=== PATIENT | male | born 1980 ===

== ENCOUNTER 2020-09-21 01:48 | Emergency (ER) | payer OTHER ==
[~2020-09-21] VITALS: Ht 160 cm; Wt 93.9 kg
[2020-09-21 01:48] VITALS: BP 113/73; TEMP 97.2
[~2020-09-21 01:48] MED LIST: ACET-206 PO; ASPIR-8181 MG PO; ASPIRIN325 M1 PO; ATEN25TA21 PO; BUSP15TAB2 PO; BUSPIRONE15 MG PO; CITA20TA2 PO; DIVA125C PO; DIVA250T PO; DIVALPROEX125 M1 PO; DIVALPROEX500 M1 PO; DIVALPROEX500 MG PO; DOK100 MG PO; KETOCONAZOLE21 EX; MEDR2.5T19 PO; MIRTAZAPINE7.5 MG PO; NICOTINE T14 MG/241 TD; OLANZAPINE5 MG PO; ONDA4TAB3 PO; PANTOPRAZOLE 40MG TA PO; POTA20TA4 PO; ROWEEPRA XR500 MG PO; SENNA8.6 MG PO; TRAMADOL HYDROC50 MG PO; TRAZODONE HYDR100 MG PO; TRIA37.541 PO; VITAMIN B-121000 MC2 PO; VITAMIN D35000 UNI1 PO; ZOLOFT25 MG PO
[2020-09-21 02:47] LABS: PLATELET COUNT 205 K/uL (142-355)
[2020-09-21 03:08] LABS: POTASSIUM 3.7 mmol/L (3.6-5.2)
[2020-09-21] MEDS ORDERED: CELEXA20 MG PO (05:01)
[2020-09-21] MEDS ORDERED: PROVERA5 MG PO (05:04)
[2020-09-21] MEDS ORDERED: TEMA15CA19 PO (05:06)
[2020-09-21] MEDS ORDERED: TRIA37.541 PO (05:10)
[2020-09-21] MEDS ORDERED: DIVA500T2 PO (05:13)
[2020-09-21] MEDS ORDERED: HALO5TAB10 PO (05:15)
[2020-09-21] MEDS ORDERED: HALO5INJ3 IM (05:19)
[2020-09-21] MEDS ORDERED: HYDR5TAB9 PO (05:21)
== END 2020-09-21 04:28 | disposition still patient (30) ==
LOC: ED 01:48
PROVIDERS: Emergency Medicine
DX: R46.89 Other symptoms and signs involving appearance and behavior (principal); I69.354 Hemiplegia and hemiparesis following cerebral infarction affecting left non-dominant side; F17.210 Nicotine dependence, cigarettes, uncomplicated; Z11.52 Encounter for screening for COVID-19; Z04.6 Encounter for general psychiatric examination, requested by authority
CPT/HCPCS: 36415; 80053; 81000; 85027; 87635; 93005; 99283; U0003

== ENCOUNTER 2020-10-15 14:41 | Emergency (ER) | payer OTHER ==
[~2020-10-15] VITALS: Ht 190.5 cm; Wt 93.9 kg
[2020-10-15 14:41] VITALS: BP 121/79; TEMP 97
[~2020-10-15 14:41] MED LIST changes: +BUSPIRONE10 MG PO; +CELEXA20 MG PO; +CELEXA40 MG PO; +DIVA500T2 PO; +HALO5INJ3 IM; +HALO5TAB10 PO; +HYDR5TAB9 PO; +NICODERM C14 MG/241 TD; +OLAN2.5T2 PO; +PROVERA5 MG PO; +TEMA15CA19 PO
[2020-10-15 15:19] LABS: PLATELET COUNT 177 K/uL (142-355)
[2020-10-15 15:25] LABS: POTASSIUM 3.6 mmol/L (3.6-5.2)
[2020-10-15] MEDS ORDERED: DIPHENHYDRAM50 MG/ML INJ (23:23)
[2020-10-15] MEDS ORDERED: BUSPIRONE HYDRO10 MG PO (23:24)
[2020-10-15] MEDS ORDERED: CITALOPRAM40 MG PO (23:25)
[2020-10-15] MEDS ORDERED: HALO5INJ3 INJ (23:27)
[2020-10-15] MEDS ORDERED: HALO5TAB10 PO (23:27)
[2020-10-15] MEDS ORDERED: OLANZAPINE2.5 MG PO (23:30)
[2020-10-15] MEDS ORDERED: HYDROCODONE/ACETAMIN PO (23:30)
[2020-10-15] MEDS ORDERED: TRIA37.541 PO (23:31)
== END 2020-10-15 15:57 | disposition other institution (70) ==
LOC: ED 15:02
PROVIDERS: Family Medicine
DX: Z04.6 Encounter for general psychiatric examination, requested by authority (principal); F91.8 Other conduct disorders; F25.8 Other schizoaffective disorders
CPT/HCPCS: 80053; 81000; 85027; 87635; 93005; 99283; U0003

== ENCOUNTER 2021-10-06 01:42 | Emergency (ER) | payer OTHER ==
[~2021-10-06] VITALS: Ht 157.5 cm; Wt 78.0 kg
[~2021-10-06 01:42] MED LIST changes: +ABILIFY 10MG TAB PO; +BUSPIRONE HYDRO10 MG PO; +CALAMINE TOP; +CITALOPRAM40 MG PO; +DIPHENHYDRAM50 MG/ML INJ; +ESCI10TA PO; +HALO5INJ3 INJ; +HYDROCODONE/ACETAMIN PO; +LACTSYP31 PO; +LAMO100T PO; +LIDO2SOL TOP; +MAGNSUS68 PO; +METH10TA64 PO; +OLANZAPINE2.5 MG PO; +REMERON 15MG TAB PO; +[UNRECOGNIZED DRUG - CODE] TOP
[2021-10-06 02:31] LABS: POTASSIUM 3.2 mmol/L (3.6-5.2)
[2021-10-06 02:34] LABS: PLATELET COUNT 132 K/uL (142-355)
[2021-10-06 03:15] VITALS: BP 121/79; TEMP 98
[2021-10-06] MEDS ORDERED: LEXAPRO10 MG PO (04:11)
[2021-10-06] MEDS ORDERED: MIRTAZAPINE7.5 MG PO (04:12)
[2021-10-06] MEDS ORDERED: ABILIFY20 MG PO (04:14)
[2021-10-06] MEDS ORDERED: K-TAB20 MEQ PO (04:15)
[2021-10-06] MEDS ORDERED: TRAZ100T PO (04:16)
[2021-10-06] MEDS ORDERED: TRIA37.541 PO (04:17)
[2021-10-06] MEDS ORDERED: VITAMIN D35000 UNI1 PO (04:19)
[2021-10-06] MEDS ORDERED: LEVE500T5 PO (04:20)
[2021-10-06] MEDS ORDERED: KETOCONAZOLE21 EX (04:21)
[2021-10-06] MEDS ORDERED: PROVERA10 MG PO (04:22)
[2021-10-06] MEDS ORDERED: RISP2TAB2 PO (04:23)
[2021-10-06] MEDS ORDERED: METH5TAB13 PO (04:23)
[2021-10-06] MEDS ORDERED: DIVALPROEX500 M1 PO (04:45)
[2021-10-06] MEDS ORDERED: HALO5TAB10 PO (04:46)
[2021-10-06] MEDS ORDERED: TRAZ50TA36 PO (04:46)
[2021-10-06] MEDS ORDERED: APAP325 MG PO (04:47)
[2021-10-06] MEDS ORDERED: BENADRYL 50M50 MG/ML IM (04:49)
[2021-10-06] MEDS ORDERED: CALAMIN3 EX (04:50)
[2021-10-06] MEDS ORDERED: CORRECTOL100 MG PO (04:51)
[2021-10-06] MEDS ORDERED: HALO5INJ3 IM (04:53)
[2021-10-06] MEDS ORDERED: TRAZODONE HYDRO50 MG PO (04:57)
[2021-10-06] MEDS ORDERED: TRIA0.1C5 EX (04:58)
[2021-10-06] MEDS ORDERED: B-121000 MC5 PO (05:02)
== END 2021-10-06 03:15 | disposition still patient (30) ==
LOC: ED 01:42
PROVIDERS: Hospitalist
DX: F25.8 Other schizoaffective disorders (principal); F03.91 Unspecified dementia, unspecified severity, with behavioral disturbance; Z11.52 Encounter for screening for COVID-19; Z04.6 Encounter for general psychiatric examination, requested by authority
CPT/HCPCS: 36415; 80053; 80164; 81002; 85027; 87635; 93005; 96372; 99283; J1885; U0003